=== PATIENT | female | born 1990 | race American Indian/Alaskan Native ===

== ENCOUNTER 2021-05-24 12:43 | Emergency (ER) | payer SELFPAY ==
--- NOTE | 2021-05-24 13:59 | Electrocardiograph Report ---
[facility] Test Date: 2021-05-24 Test Time: 13:02:17 Pat Name: AGNIESZKA FRITZ Department: Room: Gender: F Software Quality Automation Engineer: CHARITO EMERYB: 1990 Requested By: ED DOC Order Number: [id number] Reading MD: James Sparrow Measurements Intervals [place] Rate: 73 P: 82 [place]: 119 QRS: 34 QRSD: 80 T: 42 QT: 395 QTc: 437 Interpretive Statements Sinus rhythm No previous ECG available for comparison Electronically Signed On 05-24-2021 13:59:00 EDT by James Sparrow
[2021-05-24] MEDS ORDERED: ACETAMINOPHEN 325 MG TAB PO ONE (16:03)
--- NOTE | 2021-05-24 16:03 | Emergency Department Report ---
<JEANNA ROBLES - Last Filed: 05/24/21 21:58> ED Abdominal Pain HPI - General Chief Complaint: Dizziness Stated Complaint: AB PAIN/PASSOUT HIT HEAD Time Seen by Provider: 05/24/21 15:31 Source: patient Mode of arrival: Ambulatory Limitations: No Limitations - History of Present Illness Initial Comments: 31-year-old female presents to the ER today with complaints of right lower quadrant/right pelvic pain and syncope. Patient states that she has been having his right pelvic/right lower abdominal pain for the past 2 to 3 days. She described as a constant sharp stabbing pain. She reports nausea but no vomiting. She denies any abnormal vaginal bleeding or discharge. She denies any UTI symptoms. She denies any fever or chills. She reports no decreased appetite. Patient states that she did pass out twice today and at the time she was having severe pain. Patient states that the second time she passed out she was told by her girlfriend that she did hit her head. She states that she was told by her girlfriend that she was out for about 2 to 3 minutes. He denies any associated chest pain, shortness of breath, vision change, speech changes, focal weakness, numbness, tingling or severe headache. Patient states that she was hospitalized 2 weeks ago at [facility] for similar symptoms. She states that she was having same right lower quadrant/right pelvic pain and had passed out. She states that during her stay which was about 3 to 4 days, did a CT of her head and abdomen as well as labs. They also did an pelvic ultrasound and she was told that she has a right-sided ovarian cyst. She did not have a pelvic exam. She states that she did not have any neurological or cardiology evaluation at that time because she was told that her syncopal episode was secondary to pain and she was diagnosed with vasovagal syncope. Patient states that her appointment with the [facility] is next . She states that she has a history of Crohn's which is mild and does not require any prescription medication. Denies any other significant past history. She denies any illicit drug use or alcohol abuse or tobacco use. She states she has had same sexual partner. Her [facility] was 1.5mth ago. She states she is not and she is currently not on any BCP MD Complaint: abdominal pain, other (syncope) -: days(s) (2-3) - Related Data Previous Rx's Medication Instructions Recorded Last Taken Type Dicyclomine [Bentyl] 20 mg PO QID #20 tablet 05/24/21 Unknown Rx Doxycycline Hyclate 100 mg PO BID 7 Days tablet. 05/24/21 Unknown Rx Naproxen 500 mg PO BID #20 tablet 05/24/21 Unknown Rx Allergies Allergy/AdvReac Type Severity Reaction Status Date / Time No Known Allergies Allergy Unverified 05/24/21 12:55 ED Review of Systems Comment: All other systems reviewed and negative Constitutional: denies: chills, fever Eyes: denies: eye pain, eye discharge, vision change ENT: denies: ear pain, throat pain Respiratory: denies: cough, shortness of breath, SOB with exertion, SOB at rest, stridor, wheezing Cardiovascular: denies: chest pain, palpitations, dyspnea on exertion, edema, syncope, paroxysmal nocturnal dyspnea Gastrointestinal: abdominal pain, nausea. denies: vomiting, diarrhea, constipation, hematemesis, hematochezia Genitourinary: denies: urgency, dysuria, frequency, hematuria, discharge, abnormal menses, dyspareunia Musculoskeletal: denies: back pain, joint swelling, arthralgia Skin: denies: rash, lesions, change in color, change in hair/nails, pruritus Neurological: other (syncope). denies: headache, weakness, numbness, paresthesias, confusion, abnormal gait Psychiatric: denies: anxiety, depression, auditory hallucinations, visual hallucinations, homicidal thoughts, suicidal thoughts Hematological/Lymphatic: denies: easy bleeding, easy bruising, swollen glands ED Past Medical Hx - Past Medical History Previous Medical History?: Yes Additional medical history: chrons disease - Surgical History Past Surgical History?: Yes Additional Surgical History: breast augmentation - Medications Home Medications: Home Medications Medication Instructions Recorded Confirmed Last Taken Type Dicyclomine [Bentyl] 20 mg PO QID #20 tablet 05/24/21 Unknown Rx Doxycycline Hyclate 100 mg PO BID 7 Days tablet. 05/24/21 Unknown Rx Naproxen 500 mg PO BID #20 tablet 05/24/21 Unknown Rx ED Physical Exam - General Limitations: No Limitations General appearance: alert, in no apparent distress - Head Head exam: Present: atraumatic, normocephalic, normal inspection - Eye Eye exam: Present: normal appearance, PERRL, EOMI Pupils: Present: normal accommodation - ENT ENT exam: Present: normal exam, mucous membranes moist, TM's normal bilaterally - Neck Neck exam: Present: normal inspection, full ROM - Respiratory Respiratory exam: Present: normal lung sounds bilaterally. Absent: respiratory distress, wheezes, rales, rhonchi - Cardiovascular Cardiovascular Exam: Present: regular rate, normal rhythm, normal heart sounds - GI/Abdominal GI/Abdominal exam: Present: soft, tenderness (ttp right LQ, more so in right pelvic area without guarding or rebound), guarding. Absent: distended, rebound, rigid - External exam: Present: normal external exam Speculum exam: Present: vaginal discharge (small amount of white discharge ), other (slight bleeding from cervic when swabed ). Absent: vaginal bleeding, foreign body, tissue, laceration Bi-manual exam: Present: adnexal tenderness (Moderate right ). Absent: cervical motion tendernes, adnexal mass, uterine enlargement, uterine tenderness - Neurological Exam Neurological exam: Present: alert, oriented X3, CN II-XII intact, normal gait - Psychiatric Psychiatric exam: Present: normal affect, normal mood - Skin Skin exam: Present: intact ED Medical Decision Making - Lab Data Result diagrams: 05/24/21 16:22 05/24/21 16:22 - EKG Data EKG shows normal: sinus rhythm Rate: normal - EKG Data Interpretation: normal EKG - Radiology Data Radiology results: report reviewed Patient: AGNIESZKA FRITZ MR#: [id number] : 1990 Acct:[id number] Age/Sex: 31 / F ADM Date: 05/24/21 Loc: ED Attending Dr: Ordering Physician: JEANNA ROBLES Date of Service: 05/24/21 Procedure(s): US transvaginal Accession Number(s): [id number] cc: JEANNA ROBLES ULTRASOUND PELVIS INDICATION: Right pelvic pain. TECHNIQUE: Transvaginal. Duplex Color Doppler used: Yes. COMPARISON: None available FINDINGS: Uterus: Present. Size: 5.6 x 2.9 x 2.9 cm. Endometrial complex: Normal measuring 0.5 cm. Mass lesions: None. Additional findings: None. Right Ovary: Size: 2.4 x 1.6 x 2.3 cm Blood flow: Normal. Cyst or mass: None. Left Ovary: Size: 2.4 x 1.8 x 1.8 cm Blood flow: Normal. Cyst or mass: None. Urinary Bladder: Normal. Free Fluid: None. Additional Findings: None. IMPRESSION: 1. No acute sonographic abnormality of the pelvis. Signer Name: Hubert Collado MD Signed: 05/24/2021 8:54 PM Workstation Name: [id number] Transcribed By: MN Dictated By: Hubert Collado MD Electronically Authenticated By: Hubert Collado MD Signed Date/Time: 05/24/212053 DD/ 52 TD/TT: - Medical Decision Making All labs reviewed -- CBC and CMP unremarkable. trop negative. UA neg UTI. HCG negative. EKG show normal sinus rhythm without any STEMI, acute ischemic changes or significant dysrhythmias. trans vag pelvic US shows nothing acute. Pelvic exam was done today since patient did not have one 2 weeks ago and showed small amt of white d/c and moderate right adnexal ttp but no CMT. Pt also reports same sexual partner and she states she is not concerned for STD. Wet prep/GC pending. She did agree to get prophylactic treatment. Pt repeat VS show persistently elevated BP but remaining VS stable. Pt states that she does not have hx of HTN but her BP has been elevated in past when she is in pain and she states she is still hurting abdomen despite oral norco. reviewed all results with patient. She again reports that the preceding symptom to her sycopal episodes has been pain. She again denies any chest pain , sob, calf pain, or LE swelling. She has no hx of heart disease and denies hx of PE/DVT. She is also not tachycardic, hypoxic nor tachypneic. She is currently awake alert and oriented x 3 with GCS of 15, neurologically intact and normal gait. I do not see indication for doing head CT at this time. Discussed case with Dr Ovalles, she recommend doing CT abdomen and pelvis since US negative and patient still in pain. Discussed plan to do CT abdomen and pelvis with patient. She expressed understanding and agreed with plan. 2158: The patient's care has been transferred to and accepted by[Octavio Chery PA-C]. We discussed: The patient's chief complaints; labs and imaging that have been completed and those that are still pending; any treatment provided and the patient's response to treatment; any significant change in condition; the treatment plan prior to the transfer of care. The accepting provider will follow up on all pending labs and imaging and make any necessary changes to the current impression and/or treatment plan. The accepting physician/midlevel is now responsible for the patient's care and final disposition. ED Disposition Clinical Impression: Pelvic pain, Vasovagal syncopes Disposition: HOME / SELF CARE / HOMELESS Is pt being admited?: No Does the pt Need Aspirin: No Condition: Stable Instructions: Pelvic Pain, Female, [id number], Syncope, [id number], Syncope (ED) Additional Instructions: Take Tylenol every 4 hours as needed for pain. Take Doxycycline as directed. Take Naprosyn twice daily with food as needed for pain. Take Bentyl as directed for intestinal discomfort. Rest. Drink plenty of fluids. Follow-up with your protein chemist as scheduled. Follow-up with tail end rider this week. Call tomorrow to schedule an appointment. See referral information below. Return to the emergency department immediately for new or worsening symptoms. Prescriptions: Dicyclomine [Bentyl] 20 mg PO QID #20 tablet Doxycycline Hyclate 100 mg PO BID 7 Days tablet. Naproxen 500 mg PO BID #20 tablet Referrals: TEJINDER LÓPEZ MD [Staff Physician] - 3-5 Days <NAM JOYA - Last Filed: 05/25/21 02:20> ED Review of Systems ROS: Stated complaint: AB PAIN/PASSOUT HIT HEAD Other details as noted in HPI ED Course Vital Signs 05/24/21 05/24/21 05/25/21 12:57 19:48 02:04 Temperature 98.1 F 98.4 F 98.1 F Pulse Rate 84 75 65 Respiratory 18 14 12 Rate Blood Pressure 147/106 Blood Pressure 157/104 152/97 [Left] O2 Sat by Pulse 97 99 100 Oximetry ED Medical Decision Making - Lab Data Result diagrams: 05/24/21 16:22 05/24/21 16:22 - Medical Decision Making Assumed care of patient from Jeanna Robles PA-C at change of shift pending radiology results. CT of the abdomen/pelvis without acute process. On re- evaluation, patient is complaining of pain and nausea as well as itching to her left arm proximal to the IV site. Wheals present suggestive of allergic reaction. Treated with Benadryl + steroids with improvement. Patient discharged home with appropriate analgesics and referred to tail end rider for further work- up of recurrent syncopal episodes. Emphasized the importance of following up w ith gynecology as previously scheduled for outpatient evaluation of recurrent abdominal pain. Patient expressed understanding and is agreeable to plan of care. Strict return precautions provided. Critical care attestation.: If time is entered above; I have spent that time in minutes in the direct care of this critically ill patient, excluding procedure time. ED Disposition Is pt being admited?: No Does the pt Need Aspirin: No Time of Disposition: 22:41
[2021-05-24 16:48] LABS: Basophils % (Auto) 0.4 % (0.0-1.8); Eosinophils # (Auto) 0.1 K/mm3 (0.0-0.4); Hematocrit 37.6 % (30.3-42.9); Hemoglobin 12.9 gm/dl (10.1-14.3); Lymphocytes # (Auto) 1.2 K/mm3 (1.2-5.4); Lymphocytes % (Auto) 17.9 % (13.4-35.0); Mean Corpuscular HGB Conc 34 % (30-34); Mean Corpuscular Volume 90 fl (79-97); Monocytes # (Auto) 0.4 K/mm3 (0.0-0.8); Monocytes % (Auto) 5.4 % (0.0-7.3); Platelet Count 299 K/mm3 (140-440); Red Blood Count 4.19 M/mm3 (3.65-5.03); Red Cell Distribution Width 14.2 % (13.2-15.2)
[2021-05-24 16:56] LABS: Bacteria,Urine 1+ /HPF (Negative); Bilirubin,Urine NEG (Negative); Blood,Urine SM (Negative); Color,Urine Yellow (Yellow); Mucus,Urine 3+ /HPF; Protein,Urine <15 mg/dL mg/dL (Negative)
[2021-05-24 17:34] LABS: Alanine Aminotransferase 11 units/L (7-56); Albumin 4.8 g/dL (3.9-5); Blood Urea Nitrogen 11 mg/dL (7-17); Calcium 9.9 mg/dL (8.4-10.2); Hemolysis Index 4
[2021-05-24 17:36] LABS: BUN/Creatinine Ratio 22
[2021-05-24] MEDS ORDERED: HYDROcodone/ACETAMINOPHEN 5-325 MG TAB PO ONE (19:47)
--- NOTE | 2021-05-24 20:59 | Ultrasound Report ---
ULTRASOUND PELVIS INDICATION: Right pelvic pain. TECHNIQUE: Transvaginal. Duplex Color Doppler used: Yes. COMPARISON: None available FINDINGS: Uterus: Present. Size: 5.6 x 2.9 x 2.9 cm. Endometrial complex: Normal measuring 0.5 cm. Mass lesions: None. Additional findings: None. Right Ovary: Size: 2.4 x 1.6 x 2.3 cm Blood flow: Normal. Cyst or mass: None. Left Ovary: Size: 2.4 x 1.8 x 1.8 cm Blood flow: Normal. Cyst or mass: None. Urinary Bladder: Normal. Free Fluid: None. Additional Findings: None. IMPRESSION: 1. No acute sonographic abnormality of the pelvis. Signer Name: Hubert Collado MD Signed: 05/24/2021 8:54 PM Workstation Name: [id number]
[2021-05-24] MEDS ORDERED: MORPHINE 4 MG/1 ML INJ IV ONE (21:13)
[2021-05-24] MEDS ORDERED: ONDANSETRON 4 MG/2 ML INJ IV ONE (21:13)
[2021-05-24] MEDS ORDERED: LIDOCAINE-MPF (1%) 10 MG/1 ML VIAL 5 ML INFILTRATI ONE ×2 (22:06→22:37)
--- NOTE | 2021-05-24 22:30 | Cat Scan Report ---
CT ABDOMEN AND PELVIS WITH IV CONTRAST INDICATION: Right lower quadrant abd pain. COMPARISON: None available. TECHNIQUE: All CT scans at this facility use dose modulation, automated exposure control, iterative reconstructi on or weight based dosing, when appropriate, to reduce radiation dose to as low as reasonably achieva ble. FINDINGS: Lung Bases: No significant abnormality. Skeletal System: No acute abnormality. ABDOMEN: Liver: No significant abnormality. Gallbladder: No significant abnormality. Bile Ducts: No significant abnormality. Pancreas: No significant abnormality. Spleen: No significant abnormality. Adrenals: No significant abnormality. Right Kidney: No significant abnormality. Left Kidney: No significant abnormality. Upper GI tract: No significant abnormality. Lymph Nodes: No significant adenopathy. Aorta: No significant abnormality. Additional Findings: No significant abnormality. PELVIS: Colon: No acute abnormality. Urinary Bladder and Distal Ureters: No significant abnormality. Appendix: No significant abnormality. Lymph Nodes: No significant adenopathy. Additional Findings: None. IMPRESSION: 1. No acute process in the abdomen or pelvis. Signer Name: Devan Horta MD Signed: 05/24/2021 10:26 PM Workstation Name: [id number]
[2021-05-24] MEDS ORDERED: diphenhydrAMINE 50 MG/ML VIAL IV ONE (22:46)
[2021-05-24] MEDS ORDERED: methylPREDNISolone Sod Succinate 125 MG/2 ML INJ IV ONE (22:46)
[2021-05-24] MEDS ORDERED: KETOROLAC 30 MG/1 ML INJ IV ONE (23:52)
[2021-05-25] MEDS ORDERED: METOCLOPRAMIDE 10 MG TAB PO ONE (01:41)
[2021-05-25 02:09] VITALS: BP 152/97
== END 2021-05-25 02:10 | disposition home or self-care (01) ==
LOC: ED 12:43
DX: R10.2 Pelvic and perineal pain (principal); R55 Syncope and collapse; Z79.899 Other long term (current) drug therapy; Z98.890 Other specified postprocedural states
CPT/HCPCS: 36415; 74177; 76830; 80053; 81001; 83690; 84484; 84703; 85025; 93005; 96374; 96375; 99284; J0696; J1200; J1885; J2270; J2405; J2930; Q9967